=== PATIENT | male | born 1945 | race Caucasian/White ===

== ENCOUNTER 2016-09-16 19:25 | Inpatient (IN) ==
[2016-09-16] MEDS ORDERED: 0.9 % Sodium Chloride 1,000 ML IVC ONE (20:02)
[2016-09-16] MEDS ORDERED: Ipratropium/Albuterol Neb 3 ML IH ONE ×2 (20:02→20:16)
[2016-09-16] MEDS ORDERED: Ipratropium/Albuterol Neb 3 ML ONE (20:16)
[2016-09-16] MEDS ORDERED: methylPREDNISolone 125 MG/2 ML VIAL IV ONE (20:16)
[2016-09-16 20:21] LABS: Basophils % 0.2 %; Hematocrit 33.2 % (37.5-50.1); Hemoglobin 11.4 g/dL (12.9-16.9); Immature Platelets 2.2 % (1.1-6.1); Lymphocytes # 0.1 K/mcL (0.6-4.6); Lymphocytes % 3.4 %; Mean Corpuscular HGB Conc 34.3 g/dL (31.6-35.5); Mean Corpuscular Hemoglobin 33.7 pg (28.0-33.3); Mean Corpuscular Volume 98.2 fL (83.0-100.0); Mean Platelet Volume 9.5 fL (9.4-12.4); Monocytes # 0.2 K/mcL (0.0-1.3); Monocytes % 3.9 %; Platelet Count 180 K/mcL (140-400); Red Blood Count 3.38 M/mcL (4.19-5.50); Red Cell Distribution Width 12.2 % (11.5-14.5); Segmented Neutrophils % 91.5 %
[2016-09-16 20:28] LABS: Neutrophils # 3.8 K/mcL (1.6-8.9)
--- NOTE | 2016-09-16 20:32 | Emergency Department Note ---
Disposition Clinical Impression: Acute exacerbation of chronic obstructive airways disease Dyspnea Qualifiers: Dyspnea type: unspecified Qualified Code(s): R06.00 - Dyspnea, unspecified BC (bronchogenic carcinoma) Qualifiers: Laterality: unspecified laterality Qualified Code(s): C34.90 - Malignant neoplasm of unspecified part of unspecified bronchus or lung Disposition: Admitted As Inpatient Referrals: Unassigned,Provider [Non-Partnered Physician] - Forms: ED Satisfaction Letter SOB HPI - General Chief Complaint: ED Nausea/Vomiting/Diarrhea Stated Complaint: chest congestion, n/v Time Seen by Provider: 09/16/16 19:55 Source: patient, family Limitations: no limitations Nursing Notes Reviewed: Yes Vital Signs Reviewed: Yes - History of Present Illness helps with the history due the patient on continuous nebulizer he has been more short of breath and wheezing for the last 2-3 days. Currently undergoing treatment for bronchogenic carcinoma as a known history of COPD. His had a productive cough has been afebrile he had a breathing treatment about 2 hours prior to arrival and still dyspneic at rest is also on chronic home oxygen nasal cannula Pt Subjective Complaint: shortness of breath Onset (ago): day(s) (3) Severity: moderate Consistency/Duration: constant, gradually worsening Improves with: oxygen, rest, bronchodilators Worsens with: exertion - Related Data Home Medications Medication Instructions Recorded Confirmed Albuterol Sulfate [Albuterol 2 puff IH Q4HR PRN 08/10/16 08/19/16 Inhaler] Amlodipine Besylate 2.5 mg PO DAILY 08/10/16 08/19/16 Azelastine 0.1% Nasal [place] 1 spr NS BID PRN 08/10/16 08/19/16 [Astelin] Fluticasone/Salmeterol [Advair Hfa 2 puff IH BID 08/10/16 08/19/16 230-21 Mcg Inhaler] Ipratropium Neb [Atrovent Neb] 0.5 mg IH Q6HR PRN 08/10/16 08/19/16 Lovastatin [Mevacor] 20 mg PO HS 08/10/16 08/19/16 RisperiDONE [Risperidone] 0.5 mg PO TID 08/10/16 08/19/16 Sotalol [Betapace] 80 mg PO Q12HR 08/10/16 08/19/16 Previous Rx's Medication Instructions Recorded OxyCODONE Immed Rel [Roxicodone 5 5 mg PO BID PRN #60 tablet 08/12/16 MG] Guaifenesin/Codeine Phosphate 10 ml PO TID PRN #240 liquid 08/24/16 [Guaifenesin-Codeine Syrup] Magic Mouthwash [Magic Mouthwash 10 ml PO QID PRN #240 ml 08/30/16 BLM] Ondansetron ODT [Zofran ODT] 4 mg SL Q8HR PRN #30 tab.rapdis 08/30/16 Prochlorperazine Maleate 10 mg PO Q8HR PRN #90 tablet 08/30/16 [Compazine] Lidocaine/Prilocaine CREAM [Emla] 5 gm TP ONCE #1 tube 08/31/16 Sulfamethoxazole/Trimeth DS 1 each PO BID #20 tablet 09/06/16 [Bactrim DS] Sennosides/Docusate Sodium 1 each PO BID #60 tablet 09/14/16 [Senna-S Tablet] Allergies Allergy/AdvReac Type Severity Reaction Status Date / Time No Known Allergies Allergy Verified 08/10/16 08:12 All systems ED: reviewed and negative except as stated. Constitutional: Reports: weakness. Denies: fever Cardiovascular: Denies: chest pain Respiratory: Reports: cough, dyspnea, wheezes Past Medical History - Past Medical History Source: patient, old records reviewed, obtained from family, nursing notes reviewed Medical history: Reports: arthritis, atrial fibrillation, cancer, COPD, coronary artery disease, GI bleed, hyperlipidemia, hypertension Surgical history: Reports: cholecystectomy, colectomy, orthopedic, other, pacemaker Psychiatric history: Reports: no psych history - Social History Smoking Status: Former smoker Smokeless Tobacco Status: No Alcohol use: Reports: occasionally Drug use: Reports: none Physical Exam - General Limitations: no limitations General appearance: alert, other (Very hard or hearing mild respiratory distress ) - Head Head exam: atraumatic, normocephalic, normal inspection - Eye Eye exam: Present: normal appearance, PERRL, EOMI - Expanded Eye Exam Pupils: Left: reactive - ENT ENT exam: normal exam, normal oropharynx, mucous membranes moist - Expanded ENT Exam External ear exam: Present: normal external inspection Mouth exam: Present: normal external inspection Teeth exam: Present: normal inspection Throat exam: Present: normal inspection - Neck Neck exam: Present: normal inspection, full ROM, trachea midline - Chest Chest inspection: Present: normal inspection, symmetric chest wall rise - Respiratory Respiratory exam: Present: respiratory distress (Mild tachypneic), wheezes (Get her wheezes and rhonchi), accessory muscle use, prolonged expiratory phase - Cardiovascular Cardiovascular exam: Present: regular rate, normal rhythm, normal heart sounds - Abdominal Exam Abdominal exam: Present: soft, Non-Tender. Absent: tenderness, distention, guarding, rebound, rigidity - Extremities Exam Extremities exam: Present: normal inspection, full ROM. Absent: tenderness, pedal edema - Expanded Upper Extremity Exam Shoulder exam: Present: normal inspection, full ROM Arm exam: Present: normal inspection, full ROM Elbow exam: Present: normal inspection, full ROM Forearm/Wrist exam: Present: normal inspection, full ROM Hand exam: Present: normal inspection, full ROM Vascular exam: Normal: capillary refill, radial pulse - Expanded Lower Extremity Exam Hip/Pelvis exam: Present: normal inspection, full ROM Upper leg exam: Present: normal inspection, full ROM Knee exam: Present: normal inspection, full ROM Lower leg exam: Present: normal inspection, full ROM Ankle exam: Present: normal inspection, full ROM Foot/toe exam: Present: normal inspection, full ROM Neurovascular/Tendon exam: Absent: motor deficit, sensory deficit, tendon deficit - Back Exam Back exam: Present: normal inspection, full ROM. Absent: tenderness - Neurological Exam Neurological exam: Present: alert, oriented X3 - Expanded Neurological Exam Patient oriented to: Present: person, place, time Coma Scale Eye Opening: Spontaneous Coma Scale Motor Response: Obeys Commands Coma Scale Verbal Response: Oriented Coma Scale Total: 15 - Psychiatric Psychiatric exam: Present: normal affect, normal mood - Skin Skin exam: Present: warm, dry, intact, normal color Course Vital Signs Temperature 98.4 F 09/16/16 19:29 Pulse Rate 100 09/16/16 19:29 Respiratory Rate 26 09/16/16 19:29 Blood Pressure 112/67 09/16/16 19:29 O2 Sat by Pulse Oximetry 91 L 09/16/16 19:29 Temperature 98.4 F 09/16/16 19:29 Pulse Rate 100 09/16/16 19:29 Respiratory Rate 28 09/16/16 20:13 Blood Pressure 112/67 09/16/16 19:29 O2 Sat by Pulse Oximetry 96 09/16/16 20:13 Oxygen Delivery Oxygen Delivery Room Air Shortness of Breath/Dyspnea - Differential Diagnosis Likely: acute exacerbation of chronic obstructive airways disease, congestive heart failure, pneumonia, asthma with exacerbation, pulmonary embolism, pneumothorax, arrhythmia - Medical Records Medical records reviewed: Yes I reviewed the patient's medical records. - Lab Data Lab results reviewed: Yes I reviewed the patient's lab results. Result diagrams: 09/16/16 20:11 09/16/16 20:11 Lab Results 09/16/16 09/16/16 09/16/16 Range/Units 20:11 20:11 20:11 WBC 4.1 L (4.3-11.1) K/mcL RBC 3.38 L (4.19-5.50) M/mcL Hgb 11.4 L (12.9-16.9) g/dL Hct 33.2 L (37.5-50.1) % MCV 98.2 (83.0-100.0) fL MCH 33.7 H (28.0-33.3) pg MCHC 34.3 (31.6-35.5) g/dL RDW 12.2 (11.5-14.5) % Plt Count 180 (140-400) K/mcL MPV 9.5 (9.4-12.4) fL Immature Gran % 1.0 (0-4) % Seg Neutrophils % 91.5 % Lymphocytes % 3.4 % Monocytes % 3.9 % Eosinophils % 0.0 % Basophils % 0.2 % Neutrophils # 3.8 (1.6-8.9) K/mcL Lymphocytes # 0.1 L (0.6-4.6) K/mcL Monocytes # 0.2 (0.0-1.3) K/mcL Eosinophils # 0.0 (0.0-0.6) K/mcL Basophils # 0.0 (0.0-0.2) K/mcL Immature Plt Fraction 2.2 (1.1-6.1) % Sodium 135 L (136-145) mEq/L Potassium 3.7 (3.5-4.5) mEq/L Chloride 104 (98-109) mEq/L Carbon Dioxide 20 (19-29) mEq/L BUN 14 (8-26) mg/dL Creatinine 0.72 (0.72-1.25) mg/dL Est GFR ( Amer) > 60 (> 60) Est GFR (Non-Af Amer) > 60 (> 60) BUN/Creatinine Ratio 19 (6-26) Glucose 91 (70-99) mg/dL Calculated Osmolality 280 (280-300) Lactic Acid (0.5-2.2) mmol/L Calcium 8.5 L (8.6-10.8) mg/dL Total Bilirubin 0.5 (0.2-1.2) mg/dL Direct Bilirubin 0.2 (0.0-0.5) mg/dL Indirect Bilirubin 0.3 (0.0-1.2) mg/dL AST 20 (5-34) Units/L ALT < 6 (0-55) Units/L Alkaline Phosphatase 98 (38-126) Units/L Troponin I 0.01 (0-0.03) ng/mL B-Natriuretic Peptide (0-100) pg/mL Serum Total Protein 5.7 L (6.0-8.3) g/dL Albumin 2.6 L (3.5-5.0) g/dL Globulin 3.1 (2.4-3.5) g/dL Albumin/Globulin Ratio 0.8 L (1.1-2.2) Amylase 24 L (25-125) Units/L Lipase 7 L (8-78) Units/L 09/16/16 09/16/16 Range/Units 20:11 20:11 WBC (4.3-11.1) K/mcL RBC (4.19-5.50) M/mcL Hgb (12.9-16.9) g/dL Hct (37.5-50.1) % MCV (83.0-100.0) fL MCH (28.0-33.3) pg MCHC (31.6-35.5) g/dL RDW (11.5-14.5) % Plt Count (140-400) K/mcL MPV (9.4-12.4) fL Immature Gran % (0-4) % Seg Neutrophils % % Lymphocytes % % Monocytes % % Eosinophils % % Basophils % % Neutrophils # (1.6-8.9) K/mcL Lymphocytes # (0.6-4.6) K/mcL Monocytes # (0.0-1.3) K/mcL Eosinophils # (0.0-0.6) K/mcL Basophils # (0.0-0.2) K/mcL Immature Plt Fraction (1.1-6.1) % Sodium (136-145) mEq/L Potassium (3.5-4.5) mEq/L Chloride (98-109) mEq/L Carbon Dioxide (19-29) mEq/L BUN (8-26) mg/dL Creatinine (0.72-1.25) mg/dL Est GFR ( Amer) (> 60) Est GFR (Non-Af Amer) (> 60) BUN/Creatinine Ratio (6-26) Glucose (70-99) mg/dL Calculated Osmolality (280-300) Lactic Acid 0.9 (0.5-2.2) mmol/L Calcium (8.6-10.8) mg/dL Total Bilirubin (0.2-1.2) mg/dL Direct Bilirubin (0.0-0.5) mg/dL Indirect Bilirubin (0.0-1.2) mg/dL AST (5-34) Units/L ALT (0-55) Units/L Alkaline Phosphatase (38-126) Units/L Troponin I (0-0.03) ng/mL B-Natriuretic Peptide 238 H (0-100) pg/mL Serum Total Protein (6.0-8.3) g/dL Albumin (3.5-5.0) g/dL Globulin (2.4-3.5) g/dL Albumin/Globulin Ratio (1.1-2.2) Amylase (25-125) Units/L Lipase (8-78) Units/L - Radiology Data Radiology results reviewed: Yes I reviewed the patient's radiology results.
[2016-09-16 20:36] LABS: Albumin 2.6 g/dL (3.5-5.0); Albumin/Globulin Ratio 0.8 (1.1-2.2); Alkaline Phosphatase 98 Units/L (38-126); Amylase 24 Units/L (25-125); Aspartate Amino Transferase 20 Units/L (5-34); BUN/Creatinine Ratio 19 (6-26); Bilirubin,Direct 0.2 mg/dL (0.0-0.5); Bilirubin,Indirect 0.3 mg/dL (0.0-1.2); Bilirubin,Total 0.5 mg/dL (0.2-1.2); Blood Urea Nitrogen 14 mg/dL (8-26); Calcium 8.5 mg/dL (8.6-10.8); Carbon Dioxide 20 mEq/L (19-29); Chloride 104 mEq/L (98-109); Globulin 3.1 g/dL (2.4-3.5); Glucose 91 mg/dL (70-99); Lipase 7 Units/L (8-78); Osmolality,Calculated 280 (280-300); Potassium 3.7 mEq/L (3.5-4.5); Sodium 135 mEq/L (136-145); Total Protein 5.7 g/dL (6.0-8.3); eGFR For African Americans > 60 (> 60); eGFR For Non-African Americans > 60 (> 60)
[2016-09-16 20:37] LABS: Alanine Aminotransferase < 6 Units/L (0-55)
[2016-09-16] MEDS ORDERED: Levofloxacin 750 MG/150 ML 750 MG/150 ML BAG IVPB ONE (21:32)
--- NOTE | 2016-09-16 23:33 | Internal Med History&Physical ---
Date of Encounter: 09/17/16 Time of Encounter: 23:29 Assessment and Plan (1) Acute respiratory failure Current visit: Yes Status: Acute Differential includes COPD exacerbation vs. infection vs. thromboembolism Will rule out PE with CTA but start on therapeutic Lovenox for now as he does have AFib not currently on anticoagulation He did have Wells score of 2.5 (HR and Malignancy) Continue with home oxygen and breathing treatments Qualifiers: Qualified Code(s): J96.00 - Acute respiratory failure, unspecified whether with hypoxia or hypercapnia (2) Acute exacerbation of chronic obstructive airways disease Current visit: Yes Status: Acute Will continue breathing treatments, supplemental oxygen and cough medications He received one dose of steroids in the ED which helped him significantly with wheezing, will continue IV steroids 60 q6hr Continue with Levaquin 500 mg IV daily (3) Paroxysmal a-fib Current visit: Yes Status: Chronic Patient is currently in NSR but does not have any chronic anticoagulation as he has elected not to receive it during an outpatient with his supervisor forming department CHADVASC = 2 (age, HTN), will start therapeutic Lovenox for now as there is moderate suspicion for PE as well Continue with home Sotalol for rate control (4) Hypertension Current visit: Yes Status: Chronic BP stable since admission Will continue home Norvasc Monitor vitals while on telemetry Qualifiers: Qualified Code(s): I10 - Essential (primary) hypertension (5) BC (bronchogenic carcinoma) Current visit: Yes Status: Chronic He is being treated as outpatient by Dr. Singer No urgent need for consult at this time CTA ordered to rule out PE may also demonstrate any new mass effects Qualifiers: Laterality: right Qualified Code(s): C34.31 - Malignant neoplasm of lower lobe, right bronchus or lung (6) DVT prophylaxis Current visit: Yes Status: Acute Therapeutic Lovenox as above Internal Medicine - H&P: HPI Chief complaint: Shortness of breath Admitted From: Home Plans for Post Hospital Care: Home History of present illness: Mr. Aragon is a 71 year old male who presents to the emergency department with progressive shortness of breath over the past couple days. Patient is very hard of hearing and family is at bedside and able to assist with history. Patient has history of bronchogenic carcinoma and currently being treated at the cancer center over the last 3 weeks with chemotherapy (Carbo/Taxol) and radiation on . He last had his treatment on Monday and on that night he became more short of breath and had wheezing. He also describes a chest heaviness, nonproductive cough, but denies any hemoptysis or blood in urine/ stool. He does have inhalers at home for his COPD and also has 2 L of nighttime oxygen. Patient denies any fever, chills, nausea, vomiting, but he does state that he has recent diarrhea over the past several days. His appetite has also been poor the last couple days. He was noted to have lip swelling that started 3 weeks ago and was treated as an outpatient with antibiotics, which has decreased the swelling. Since arriving at the emergency department, he states he is feeling better after being on breathing treatments, steroids and oxygen. Past Med Surg Social Fam HX - Past Medical History Medical history: arthritis, atrial fibrillation, cancer, COPD, coronary artery disease, GI bleed, hyperlipidemia, hypertension Psychiatric history: no psych history - Past Surgical History Surgical History: cholecystectomy, colectomy, orthopedic, other, pacemaker - Social History Smoking Status: Former smoker Smokeless Tobacco Status: No Alcohol use: occasionally Drug use: none Internal Medicine - H&P: Meds Albuterol Sulfate [Albuterol Inhaler] 2 puff IH Q4HR PRN 08/10/16 [History] Amlodipine Besylate 2.5 mg PO DAILY 08/10/16 [History] Azelastine 0.1% Nasal [place] [Astelin] 1 spr NS BID PRN 08/10/16 [History] Fluticasone/Salmeterol [Advair Hfa 230-21 Mcg Inhaler] 2 puff IH BID 08/10/16 [ History] Ipratropium Neb [Atrovent Neb] 0.5 mg IH Q6HR PRN 08/10/16 [History] Lovastatin [Mevacor] 20 mg PO HS 08/10/16 [History] RisperiDONE [Risperidone] 0.5 mg PO TID 08/10/16 [History] Sotalol [Betapace] 80 mg PO Q12HR 08/10/16 [History] OxyCODONE Immed Rel [Roxicodone 5 MG] 5 mg PO BID PRN #60 tablet 08/12/16 [Rx] Guaifenesin/Codeine Phosphate [Guaifenesin-Codeine Syrup] 10 ml PO TID PRN #240 liquid 08/24/16 [Rx] Magic Mouthwash [Magic Mouthwash BLM] 10 ml PO QID PRN #240 ml 08/30/16 [Rx] Ondansetron ODT [Zofran ODT] 4 mg SL Q8HR PRN #30 tab.rapdis 08/30/16 [Rx] Prochlorperazine Maleate [Compazine] 10 mg PO Q8HR PRN #90 tablet 08/30/16 [Rx] Lidocaine/Prilocaine CREAM [Emla] 5 gm TP ONCE #1 tube 08/31/16 [Rx] Sennosides/Docusate Sodium [Senna-S Tablet] 1 each PO BID #60 tablet 09/14/16 [ Rx] Allergies No Known Allergies Allergy (Verified 08/10/16 08:12) All Systems PM: A 10-system review of systems was performed and is negative for pertinent findings except as documented above in the HPI. - Constitutional Constitutional: no chills, no fever(s), no night sweats - EENT Eyes: no change in vision, no discharge, no pain, no photophobia Ears: decreased hearing, no ear discharge, no ear pain, no tinnitus Nose, mouth and throat: no dysphagia, no nasal discharge, no neck pain, no sore throat - Cardiovascular Cardiovascular ROS IM: chest pain (heaviness), dyspnea, dyspnea on exertion, no diaphoresis, no lightheadedness, no palpitations, no syncope - Respiratory Respiratory: wheezing, no cough, no dyspnea, no excessive phlegm production - Gastrointestinal Gastrointestinal: diarrhea, no abdominal pain, no hematemesis, no hematochezia, no melena, no nausea, no vomiting - Musculoskeletal Musculoskeletal ROS IM: no numbness, no tingling - Integumentary Integumentary IM: no rash, no unusual bruising - Neurological Neurological ROS: no confusion, no convulsions, no focal weakness, no numbness, no tingling, no tremor(s) - Hematologic/Lymphatic Hematologic/Lymphatic: no easy bruising - Constitutional Vitals: Temp Pulse Resp BP Pulse Ox 98.4 F 100 28 112/67 96 09/16/16 19:29 09/16/16 19:29 09/16/16 20:13 09/16/16 19:29 09/16/16 20:13 General appearance: Present: cooperative, mild distress (mild respiratory), pleasant, answers questions appropriately (but hard of hearing) - Head Head exam: Present: atraumatic, normocephalic - Eye Eye exam: Present: PERRL, conjuntiva pink, sclera anicteric - Neck Neck exam general surgery: Present: supple, trachea midline. Absent: lymphadenopathy - Respiratory Respiratory exam: Present: wheezes (R>L). Absent: accessory muscle use, rales, rhonchi - Cardiovascular Cardiovascular exam: Present: RRR, +S1, +S2. Absent: diastolic murmur, gallop, rubs, systolic murmur - GI/Abdominal GI/Abdominal exam: Present: normal bowel sounds, soft, no peritoneal signs. Absent: distended, tenderness - Extremities Exam Extremities exam: Present: warm, radial pulses palpable and symetrical. Absent : calf tenderness, cyanotic, pedal edema - Neurological Exam Neurological exam: Present: alert, no focal deficits. Absent: facial droop, speech deficit - Skin Skin exam: Present: dry, intact Internal Med - H&P Results - Labs CBC & Chem 7: 09/16/16 20:11 09/16/16 20:11
[2016-09-16] MEDS ORDERED: Naloxone 0.4 MG/ML INJ IVP PRN (23:51)
[2016-09-16] MEDS ORDERED: Ondansetron 4 MG/2 ML VIAL IVP PRN (23:51)
[2016-09-16] MEDS ORDERED: Acetaminophen 325 MG TABLET PO PRN (23:51)
[2016-09-17] MEDS ORDERED: Albuterol 2.5 MG/3 ML NEBULIZER IH PRN (00:14)
[2016-09-17] MEDS: 0.9 % Sodium Chloride 1,000 ML IVC SCH ×2 (00:30→10:24)
[2016-09-17 02:30] LABS: Hematocrit 29.4 % (37.5-50.1); Lymphocytes # 0.1 K/mcL (0.6-4.6); Mean Corpuscular Hemoglobin 33.7 pg (28.0-33.3); Mean Platelet Volume 9.5 fL (9.4-12.4); Platelet Count 132 K/mcL (140-400); Red Blood Count 2.97 M/mcL (4.19-5.50); Red Cell Distribution Width 12.1 % (11.5-14.5)
[2016-09-17 02:44] LABS: BUN/Creatinine Ratio 20 (6-26); Blood Urea Nitrogen 14 mg/dL (8-26); Calcium 8.4 mg/dL (8.6-10.8); Carbon Dioxide 20 mEq/L (19-29); Chloride 103 mEq/L (98-109); Glucose 117 mg/dL (70-99); Osmolality,Calculated 278 (280-300); Potassium 4.3 mEq/L (3.5-4.5); Sodium 133 mEq/L (136-145); eGFR For African Americans > 60 (> 60); eGFR For Non-African Americans > 60 (> 60)
[2016-09-17 03:39] LABS: Hypersegmented Neutrophils Present (Not Present); Monocytes # 0.1 K/mcL (0.0-1.3); Neutrophils # 3.1 K/mcL (1.6-8.9); Polychromasia 1+ (Not Present)
[2016-09-17 03:40] LABS: Platelet Estimate Decreased (Normal)
[2016-09-17 03:49] LABS: Anisocytosis 1+ (Not Present)
[2016-09-17] MEDS ORDERED: Ipratropium/Albuterol Neb 3 ML IH SCH (04:00)
[2016-09-17] MEDS: Albuterol 2.5 MG/3 ML NEBULIZER IH SCH ×6 (04:14→23:30)
[2016-09-17] MEDS: Ipratropium/Albuterol Neb 3 ML IH SCH ×5 (04:41→23:30)
[2016-09-17] MEDS: methylPREDNISolone 125 MG/2 ML VIAL IVP SCH ×3 (05:14→17:08)
[2016-09-17] MEDS: *HR* Enoxaparin 80 MG/0.8 ML SYRINGE SQ SCH ×2 (05:17→17:08)
[2016-09-17] MEDS: Budesonide/Formoterol 160/4.5 MDI IH SCH ×2 (07:40→20:25)
[2016-09-17] MEDS: amLODIPine 5 MG TABLET PO SCH (09:36)
[2016-09-17] MEDS: Pantoprazole 40 MG VIAL IVP SCH (10:23)
--- NOTE | 2016-09-17 16:33 | Internal Med Progress Note ---
<RamanaPradeep carlton - Last Filed: 09/17/16 16:27> Date of Encounter: 09/17/16 Time of Encounter: 11:00 - Assessment and plan (1) Acute respiratory failure Current Visit: Yes Status: Acute Assessment and plan: Etiology likely multifactorial in setting of COPD, immunocompromised state, recent chemo/radiation. Continue Levaquin Day 1 Methylprednisolone 60mg Q6HR scheduled DuoNebs Q4HR will check ABG tomorrow morning. possible sepsis. Patient technically meets SIRS criteria but this is confounded by his chemotherapy, which is probably lowering his white count. blood culturesx2 pending urine culture pending will trend lactate. induced sputum culture. Qualifiers: Respiratory failure complication: unspecified whether with hypoxia or hypercapnia Qualified Code(s): J96.00 - Acute respiratory failure, unspecified whether with hypoxia or hypercapnia; J96.02 - Acute respiratory failure with hypercapnia (2) Acute exacerbation of chronic obstructive airways disease Current Visit: Yes Status: Acute Assessment and plan: plan as above. (3) BC (bronchogenic carcinoma) Current Visit: Yes Status: Chronic Assessment and plan: Patient was recently diagnosed with bronchogenic carcinoma last month. Patient sees Dr. Singer outpatient. He is receiving chemo/radiation. Patient has a smoking history of 2 years, <1 PPD. CTA revealed right upper lobe lung mass near mediastinum, compatible with his known malignancy. There was a satellite nodue in the right upper lobe of the lung measuring 3mm. There were normal sized right hilar and mediastinal lymph nodes which demonstrated FDG uptake on previous study, compatible with metastatic disease. Management as per oncology outpatient. Qualifiers: Laterality: right Qualified Code(s): C34.31 - Malignant neoplasm of lower lobe, right bronchus or lung (4) Hypertension Current Visit: Yes Status: Chronic Assessment and plan: BP well controlled. continue home med norvasc, Qualifiers: Hypertension type: essential hypertension Qualified Code(s): I10 - Essential (primary) hypertension (5) Paroxysmal a-fib Current Visit: Yes Status: Chronic Assessment and plan: Patient not on any chronic anticoagulation. He has elected to not receive it outpatient. CHADS/VASC score is 2 CTA negative for PE. Continue therapeutic lovenox. Will discuss continue sotalol home med. (6) DVT prophylaxis Current Visit: Yes Status: Acute Assessment and plan: lovenox. - Subjective Interval history: 71 year old male evaluated at bedside. He reports having a productive cough with yellow sputum production. He denies fever/chills.He denies chest pain or shortness of breath. He denies hemoptysis. He denies nausea, vomiting, diarrhea. Patient has a history of bronchogenic carcinoma. He recently received his first round of radiation/chemo. His oncologist is Dr. Singer. He smoked for two years total, and used to smoke less than 1PPD. He has a hx of COPD and is on 2L home oxygen. - Constitutional Vitals: Temp Pulse Resp BP Pulse Ox 97.8 F 74 18 109/60 94 L 09/17/16 15:00 09/17/16 15:00 09/17/16 15:00 09/17/16 15:00 09/17/16 15:00 General appearance: Present: cooperative, mild distress (mild respiratory), A&O X 3, pleasant, answers questions appropriately (but hard of hearing) Exam: patient has continuous cough. - Head Head exam: Present: atraumatic, normocephalic - Eye Eye exam: Absent: scleral icterus - Neck Neck exam general surgery: Present: supple, trachea midline - Respiratory Respiratory exam: Present: rhonchi, wheezes (inspiratory and expiratory wheezes noted. ) - Cardiovascular Additional comments: paced rhythm. Pacemaker on left side of chest. Chemo port present on right side of chest. - GI/Abdominal GI/Abdominal exam: Present: normal bowel sounds, soft - Extremities Exam Extremities exam: Absent: cyanotic, pedal edema Additional comments: scar on medial side of left calf. - Neurological Exam Neurological exam: Present: alert, oriented X3, no focal deficits - Psychiatric Psychiatric exam: Present: normal affect, normal mood Internal Medicine: Result - Labs CBC & Chem 7: 09/17/16 02:23 09/17/16 02:23 Labs: Short CBC 09/17/16 Range/Units 02:23 WBC 3.2 L (4.3-11.1) K/mcL Hgb 10.0 L (12.9-16.9) g/dL Hct 29.4 L (37.5-50.1) % Plt Count 132 L (140-400) K/mcL Neutrophils # 3.1 (1.6-8.9) K/mcL BMP 09/17/16 02:23 Sodium 133 L Potassium 4.3 Chloride 103 Carbon Dioxide 20 BUN 14 Creatinine 0.70 L Glucose 117 H Calcium 8.4 L Cardiac Enzymes 09/17/16 09/17/16 Range/Units 02:23 08:35 Troponin I 0.01 0.01 (0-0.03) ng/mL - Impressions Impressions Chest CTA 09/17/16 08:30 IMPRESSION: 1. No evidence of a pulmonary embolism. 2. Right upper lobe lung mass, abutting the mediastinum, compatible with a known primary malignancy. There is a satellite nodule in the right upper lobe of the lung measuring 3 mm (series 4, image 26). This did not have appreciable FDG uptake on the prior exam. 3. Benign right adrenal adenoma. 4. There are normal sized right hilar and mediastinal lymph nodes which did demonstrate FDG uptake on the previous study, and are compatible with metastatic disease. 5. Centrilobular and paraseptal emphysema. D/ / 09/17/2016 09:33:39 Zain Contreras MD / mercedes Interpreting Provider: Zain Contreras MD Consult Discharge Plan - Plan Referrals: Elsa Godadrd, [employer] [Primary Care Provider] - <Jonathan Davis A - Last Filed: 09/17/16 19:09> Date of Encounter: 09/17/16 - Assessment and plan (1) Acute respiratory failure Current Visit: Yes Status: Acute Qualifiers: Respiratory failure complication: hypoxia and hypercapnia Qualified Code(s) : J96.01 - Acute respiratory failure with hypoxia; J96.02 - Acute respiratory failure with hypercapnia (2) Acute exacerbation of chronic obstructive airways disease Current Visit: Yes Status: Acute (3) Cancer of upper lobe of right lung Current Visit: No Status: Acute (4) Hypertension Current Visit: Yes Status: Chronic Qualifiers: Hypertension type: essential hypertension Qualified Code(s): I10 - Essential (primary) hypertension (5) Paroxysmal a-fib Current Visit: Yes Status: Chronic - Constitutional Vitals: Temp Pulse Resp BP Pulse Ox 97.8 F 74 18 109/60 94 L 09/17/16 15:00 09/17/16 15:00 09/17/16 15:36 09/17/16 15:36 09/17/16 15:36 Internal Medicine: Result - Labs CBC & Chem 7: 09/17/16 02:23 09/17/16 02:23 Labs: Short CBC 09/17/16 Range/Units 02:23 WBC 3.2 L (4.3-11.1) K/mcL Hgb 10.0 L (12.9-16.9) g/dL Hct 29.4 L (37.5-50.1) % Plt Count 132 L (140-400) K/mcL Neutrophils # 3.1 (1.6-8.9) K/mcL BMP 09/17/16 02:23 Sodium 133 L Potassium 4.3 Chloride 103 Carbon Dioxide 20 BUN 14 Creatinine 0.70 L Glucose 117 H Calcium 8.4 L Cardiac Enzymes 09/17/16 09/17/16 Range/Units 02:23 08:35 Troponin I 0.01 0.01 (0-0.03) ng/mL - Impressions Impressions Chest CTA 09/17/16 08:30 IMPRESSION: 1. No evidence of a pulmonary embolism. 2. Right upper lobe lung mass, abutting the mediastinum, compatible with a known primary malignancy. There is a satellite nodule in the right upper lobe of the lung measuring 3 mm (series 4, image 26). This did not have appreciable FDG uptake on the prior exam. 3. Benign right adrenal adenoma. 4. There are normal sized right hilar and mediastinal lymph nodes which did demonstrate FDG uptake on the previous study, and are compatible with metastatic disease. 5. Centrilobular and paraseptal emphysema. D/ / 09/17/2016 09:33:39 Zain Contreras MD / mercedes Interpreting Provider: Zain Contreras MD - Attending Attestation I examined this patient and my medical decision-making was reviewed with the Resident Physician on 09/17/16. I agree with the documented findings, disposition and treatment plan as described except to the extent set forth below. Mr. Aragon is currently admitted for acute respiratory failure and acute exacerbation of COPD. He remains high risk due to potential for worsening respiratory failure. Mr. Aragon is doing fair at this time. He is in need of a respiratory treatment. Denies CP or abd pain. No fever or chills. Has been able to stay off bipap at this time. Exam Alert. Mod distress Heart reg Lungs with diffuse end exp wheeze Abd soft No edema I/P 1. Acute hypercarbic and hypoxic resp failure 2. Acute exac COPD Further diagnoses and plan as above.
[2016-09-17] MEDS: *HR* OxyCODONE Immed Rel 5 MG TABLET PO PRN (17:40)
[2016-09-17] MEDS: GuaiFENesin/Codeine Oral Soln 5 ML UDC PO PRN (20:49)
[2016-09-18] MEDS: methylPREDNISolone 125 MG/2 ML VIAL IVP SCH ×4 (00:05→18:25)
[2016-09-18] MEDS: Levofloxacin 500 MG/100 ML 500 MG/100 ML BAG IVPB SCH (00:05)
[2016-09-18] MEDS: GuaiFENesin/Codeine Oral Soln 5 ML UDC PO PRN ×3 (02:18→18:25)
[2016-09-18] MEDS: Ipratropium/Albuterol Neb 3 ML IH SCH ×6 (04:26→23:09)
[2016-09-18] MEDS: Albuterol 2.5 MG/3 ML NEBULIZER IH SCH ×5 (04:27→20:14)
[2016-09-18 04:33] LABS: ABG Base Excess 3.1 mEq/L (-2.0 to 3.0); ABG HCO3 27.9 mEQ/L (21-27); ABG Oxygen Saturation 96 % (95-98); ABG PCO2 43 mmHg (35-45); ABG PH 7.42 pH Units (7.32-7.45); ABG PO2 80 mmHg (85-104); ABG TCO2 29.2 mEq/L (20-26)
[2016-09-18 04:35] LABS: Blood Gas FiO2 28 %
[2016-09-18 05:01] LABS: BUN/Creatinine Ratio 26 (6-26); Blood Urea Nitrogen 15 mg/dL (8-26); Calcium 8.6 mg/dL (8.6-10.8); Carbon Dioxide 24 mEq/L (19-29); Chloride 103 mEq/L (98-109); Glucose 133 mg/dL (70-99); Osmolality,Calculated 283 (280-300); Potassium 4.2 mEq/L (3.5-4.5); Sodium 135 mEq/L (136-145); eGFR For African Americans > 60 (> 60); eGFR For Non-African Americans > 60 (> 60)
[2016-09-18] MEDS: *HR* Enoxaparin 80 MG/0.8 ML SYRINGE SQ SCH ×2 (05:45→18:25)
[2016-09-18] MEDS: Budesonide/Formoterol 160/4.5 MDI IH SCH ×2 (08:16→20:12)
[2016-09-18] MEDS: Pantoprazole 40 MG VIAL IVP SCH (08:39)
[2016-09-18] MEDS: amLODIPine 5 MG TABLET PO SCH (08:39)
[2016-09-18] MEDS: *HR* OxyCODONE Immed Rel 5 MG TABLET PO PRN ×2 (09:33→18:25)
[2016-09-18] MEDS: Magic Mouthwash 10 ML UD Cup PO SCH ×2 (11:26→18:25)
[2016-09-18] MEDS ORDERED: Ketorolac 15 MG/ML VIAL IVP PRN (11:49)
[2016-09-18] MEDS: Nystatin SUSP 5 ML UD.LIQ PO SCH ×3 (12:41→20:25)
--- NOTE | 2016-09-18 13:57 | Internal Med Progress Note ---
<Pradeep Emery - Last Filed: 09/18/16 14:28> Date of Encounter: 09/18/16 Time of Encounter: 12:00 - Assessment and plan (1) Acute respiratory failure Current Visit: Yes Status: Acute Assessment and plan: Etiology likely multifactorial in setting of COPD, immunocompromised state, recent chemo/radiation. Continue Levaquin Day 2 Methylprednisolone 60mg Q6HR scheduled DuoNebs Q4HR ABG reviewed: within normal limits. possible sepsis. Patient technically meets SIRS criteria but this is confounded by his chemotherapy, which is probably lowering his white count. blood cultures showed no growth urine culture pending lactate normal. induced sputum culture pending. Qualifiers: Respiratory failure complication: hypoxia and hypercapnia Qualified Code(s) : J96.01 - Acute respiratory failure with hypoxia; J96.02 - Acute respiratory failure with hypercapnia (2) Acute exacerbation of chronic obstructive airways disease Current Visit: Yes Status: Acute Assessment and plan: plan as above. (3) BC (bronchogenic carcinoma) Current Visit: Yes Status: Chronic Assessment and plan: Patient was recently diagnosed with bronchogenic carcinoma last month. Patient sees Dr. Singer outpatient. He is receiving chemo/radiation. Patient has a smoking history of 2 years, <1 PPD. CTA revealed right upper lobe lung mass near mediastinum, compatible with his known malignancy. There was a satellite nodue in the right upper lobe of the lung measuring 3mm. There were normal sized right hilar and mediastinal lymph nodes which demonstrated FDG uptake on previous study, compatible with metastatic disease. Management as per oncology outpatient. Qualifiers: Laterality: right Qualified Code(s): C34.31 - Malignant neoplasm of lower lobe, right bronchus or lung (4) Hypertension Current Visit: Yes Status: Chronic Assessment and plan: BP well controlled. continue home med norvasc, Qualifiers: Hypertension type: essential hypertension Qualified Code(s): I10 - Essential (primary) hypertension (5) Paroxysmal a-fib Current Visit: Yes Status: Chronic Assessment and plan: Patient not on any chronic anticoagulation. He has elected to not receive it outpatient. CHADS/VASC score is 2 CTA negative for PE. Continue therapeutic lovenox while in the hospital setting. continue sotalol home med. (6) DVT prophylaxis Current Visit: Yes Status: Acute Assessment and plan: lovenox. - Subjective Interval history: 71 year old male evaluated at bedside. He denies nausea, vomiting, fever, chills. He has mild intermittent shortness of breath. - Constitutional Vitals: Temp Pulse Resp BP Pulse Ox 98.5 F 59 20 101/62 97 09/18/16 11:31 09/18/16 11:31 09/18/16 11:31 09/18/16 11:31 09/18/16 09:23 General appearance: Present: cooperative, mild distress (mild respiratory), A&O X 3, pleasant, answers questions appropriately (but hard of hearing) - Head Head exam: Present: atraumatic, normocephalic - Neck Neck exam general surgery: Present: supple, trachea midline - Respiratory Respiratory exam: Present: rales, rhonchi, wheezes - Cardiovascular Cardiovascular exam: Present: RRR Additional comments: pacemaker on left side of chest, chemo port on right side of chest. - GI/Abdominal GI/Abdominal exam: Present: soft, tenderness (mild tenderness to palpation. ). Absent: distended - Extremities Exam Extremities exam: Absent: cyanotic, pedal edema - Neurological Exam Neurological exam: Present: alert, oriented X3, no focal deficits - Psychiatric Psychiatric exam: Present: anxious Internal Medicine: Result - Labs CBC & Chem 7: 09/17/16 02:23 09/18/16 04:40 Labs: BMP 09/18/16 04:40 Sodium 135 L Potassium 4.2 Chloride 103 Carbon Dioxide 24 BUN 15 Creatinine 0.57 L Glucose 133 H Calcium 8.6 - ABG Interpretation ABG results: ABG ABG pH 7.42 pH Units (7.32-7.45) 09/18/16 04:21 ABG pCO2 43 mmHg (35-45) 09/18/16 04:21 ABG pO2 80 mmHg (85-104) L 09/18/16 04:21 ABG O2 Saturation 96 % (95-98) 09/18/16 04:21 Consult Discharge Plan - Plan Referrals: Elsa Goddard CNP [Primary Care Provider] - <Jonathan Davis - Last Filed: 09/18/16 18:50> Date of Encounter: 09/18/16 - Assessment and plan (1) Acute respiratory failure Current Visit: Yes Status: Acute Qualifiers: Respiratory failure complication: hypoxia and hypercapnia Qualified Code(s) : J96.01 - Acute respiratory failure with hypoxia; J96.02 - Acute respiratory failure with hypercapnia (2) Acute exacerbation of chronic obstructive airways disease Current Visit: Yes Status: Acute (3) Cancer of upper lobe of right lung Current Visit: No Status: Acute (4) Hypertension Current Visit: Yes Status: Chronic Qualifiers: Hypertension type: essential hypertension Qualified Code(s): I10 - Essential (primary) hypertension (5) Paroxysmal a-fib Current Visit: Yes Status: Chronic - Constitutional Vitals: Temp Pulse Resp BP Pulse Ox 98.1 F 66 16 103/57 94 L 09/18/16 15:00 09/18/16 15:00 09/18/16 16:28 09/18/16 15:00 09/18/16 16:28 Internal Medicine: Result - Labs CBC & Chem 7: 09/17/16 02:23 09/18/16 04:40 Labs: BMP 09/18/16 04:40 Sodium 135 L Potassium 4.2 Chloride 103 Carbon Dioxide 24 BUN 15 Creatinine 0.57 L Glucose 133 H Calcium 8.6 - ABG Interpretation ABG results: ABG ABG pH 7.42 pH Units (7.32-7.45) 09/18/16 04:21 ABG pCO2 43 mmHg (35-45) 09/18/16 04:21 ABG pO2 80 mmHg (85-104) L 09/18/16 04:21 ABG O2 Saturation 96 % (95-98) 09/18/16 04:21 - Attending Attestation I examined this patient and my medical decision-making was reviewed with the Resident Physician on 09/18/16. I agree with the documented findings, disposition and treatment plan as described except to the extent set forth below. Mr. Aragon is currently admitted for acute hypercarbic resp failure. He is moderate to high risk due to potential for respiratory compromise. Mr. Aragon is having some sore throat. No other new issues. No abd pain. No fever or chills. Exam Alert. Comfortable Heart reg Lungs diminished Abd soft I/P 1. Hypercarbic resp failure 2. Lung cancer Further diagnoses and plan as above.
[2016-09-19] MEDS: Levofloxacin 500 MG/100 ML 500 MG/100 ML BAG IVPB SCH (00:07)
[2016-09-19] MEDS: methylPREDNISolone 125 MG/2 ML VIAL IVP SCH ×4 (00:07→17:42)
[2016-09-19] MEDS: GuaiFENesin/Codeine Oral Soln 5 ML UDC PO PRN ×3 (00:16→13:32)
[2016-09-19] MEDS: Albuterol 2.5 MG/3 ML NEBULIZER IH SCH ×7 (03:07→23:12)
[2016-09-19] MEDS: Ipratropium/Albuterol Neb 3 ML IH SCH ×6 (03:46→22:50)
[2016-09-19 04:29] LABS: BUN/Creatinine Ratio 25 (6-26); Blood Urea Nitrogen 15 mg/dL (8-26); Calcium 8.4 mg/dL (8.6-10.8); Carbon Dioxide 26 mEq/L (19-29); Chloride 101 mEq/L (98-109); Glucose 118 mg/dL (70-99); Osmolality,Calculated 280 (280-300); Potassium 4.2 mEq/L (3.5-4.5); Sodium 134 mEq/L (136-145); eGFR For African Americans > 60 (> 60); eGFR For Non-African Americans > 60 (> 60)
[2016-09-19] MEDS: *HR* Enoxaparin 80 MG/0.8 ML SYRINGE SQ SCH ×2 (06:55→17:42)
[2016-09-19] MEDS: Budesonide/Formoterol 160/4.5 MDI IH SCH ×2 (07:23→19:50)
[2016-09-19] MEDS: Magic Mouthwash 10 ML UD Cup PO SCH ×3 (10:29→17:42)
[2016-09-19] MEDS: *HR* OxyCODONE Immed Rel 5 MG TABLET PO PRN ×2 (10:34→17:42)
[2016-09-19] MEDS: Pantoprazole 40 MG VIAL IVP SCH (10:34)
[2016-09-19] MEDS: amLODIPine 5 MG TABLET PO SCH (10:34)
[2016-09-19] MEDS: Nystatin SUSP 5 ML UD.LIQ PO SCH ×4 (10:34→20:30)
[2016-09-19] MEDS ORDERED: Ketorolac 15 MG/ML VIAL IVP PRN (14:06)
--- NOTE | 2016-09-19 15:36 | Electrocardiograph Report ---
[place] [id number] Test Date: 2016-09-16 Pat Name: Naveen Aragon Department: 102 Room: [id number] Gender: M [employer]: : 1945 Requested By: Chivo Busby Order Number: [id number] Reading MD: Chandana Peña MD Measurements Intervals [place] Rate: 98 P: 25 TX: 113 QRS: -27 QRSD: 89 T: 65 QT: 321 QTc: 377 Interpretive Statements SINUS RHYTHM WITH SHORT TX INTERVAL BORDERLINE LEFT AXIS DEVIATION Electronically Signed On 09-19-2016 15:34:37 EST by Chandana Peña MD
--- NOTE | 2016-09-19 16:23 | Internal Med Progress Note ---
<Pradeep Emery - Last Filed: 09/19/16 16:02> Date of Encounter: 09/19/16 Time of Encounter: 10:00 - Assessment and plan (1) Acute respiratory failure Current Visit: Yes Status: Acute Assessment and plan: Etiology likely multifactorial in setting of COPD, immunocompromised state, recent chemo/radiation. Continue Levaquin Day 3 Methylprednisolone 60mg Q6HR scheduled DuoNebs Q4HR ABG reviewed: within normal limits. blood cultures showed no growth urine culture pending lactate normal. induced sputum culture pending. patient continues to clinically improve. Qualifiers: Respiratory failure complication: hypoxia and hypercapnia Qualified Code(s) : J96.01 - Acute respiratory failure with hypoxia; J96.02 - Acute respiratory failure with hypercapnia (2) Acute exacerbation of chronic obstructive airways disease Current Visit: Yes Status: Acute Assessment and plan: plan as above. (3) BC (bronchogenic carcinoma) Current Visit: Yes Status: Chronic Assessment and plan: Patient was recently diagnosed with bronchogenic carcinoma last month. Patient sees Dr. Singer outpatient. He is receiving chemo/radiation. Patient has a smoking history of 2 years, <1 PPD. CTA revealed right upper lobe lung mass near mediastinum, compatible with his known malignancy. There was a satellite nodue in the right upper lobe of the lung measuring 3mm. There were normal sized right hilar and mediastinal lymph nodes which demonstrated FDG uptake on previous study, compatible with metastatic disease. Management as per oncology outpatient. Qualifiers: Laterality: right Qualified Code(s): C34.31 - Malignant neoplasm of lower lobe, right bronchus or lung (4) Hypertension Current Visit: Yes Status: Chronic Assessment and plan: BP 90s/60s. holding home med norvasc for now. Qualifiers: Hypertension type: essential hypertension Qualified Code(s): I10 - Essential (primary) hypertension (5) Paroxysmal a-fib Current Visit: Yes Status: Chronic Assessment and plan: Patient not on any chronic anticoagulation. He has elected to not receive it outpatient. CHADS/VASC score is 2 CTA negative for PE. Continue therapeutic lovenox while in the hospital setting. continue sotalol home med. (6) DVT prophylaxis Current Visit: Yes Status: Acute Assessment and plan: lovenox. - Subjective Interval history: 71 year old male evaluated at bedside. He is on 2L oxygen. HE denies nausea, vomiting, diarrhea, fever, chills. He is still coughing. He states he feels mildly improved compared to yesterday. - Constitutional Vitals: Temp Pulse Resp BP Pulse Ox 97.7 F 60 18 92/60 98 09/19/16 07:40 09/19/16 07:40 09/19/16 11:03 09/19/16 11:03 09/19/16 12:26 General appearance: Present: cooperative, mild distress (from coughing. ), A&O X 3, pleasant, answers questions appropriately (but hard of hearing) - Head Head exam: Present: atraumatic, normocephalic - Neck Neck exam general surgery: Present: supple, trachea midline - Respiratory Additional comments: inspiratory and expiratory wheezing present, rhonchi present. - Cardiovascular Cardiovascular exam: Present: RRR, +S1, +S2 - GI/Abdominal GI/Abdominal exam: Present: normal bowel sounds, soft. Absent: guarding - Extremities Exam Extremities exam: Absent: cyanotic, pedal edema Additional comments: scar on left calf. - Neurological Exam Neurological exam: Present: alert, oriented X3, no focal deficits - Psychiatric Psychiatric exam: Present: normal affect, normal mood Internal Medicine: Result - Labs CBC & Chem 7: 09/17/16 02:23 09/19/16 03:55 Labs: BMP 09/19/16 03:55 Sodium 134 L Potassium 4.2 Chloride 101 Carbon Dioxide 26 BUN 15 Creatinine 0.60 L Glucose 118 H Calcium 8.4 L - ABG Interpretation ABG results: ABG ABG pH 7.42 pH Units (7.32-7.45) 09/18/16 04:21 ABG pCO2 43 mmHg (35-45) 09/18/16 04:21 ABG pO2 80 mmHg (85-104) L 09/18/16 04:21 ABG O2 Saturation 96 % (95-98) 09/18/16 04:21 Consult Discharge Plan - Plan Referrals: Elsa Goddard, TYRONE [Primary Care Provider] - <Jonathan Davis - Last Filed: 09/19/16 18:44> Date of Encounter: 09/19/16 - Assessment and plan (1) Acute respiratory failure Current Visit: Yes Status: Acute Qualifiers: Respiratory failure complication: hypoxia and hypercapnia Qualified Code(s) : J96.01 - Acute respiratory failure with hypoxia; J96.02 - Acute respiratory failure with hypercapnia (2) Acute exacerbation of chronic obstructive airways disease Current Visit: Yes Status: Acute (3) Cancer of upper lobe of right lung Current Visit: No Status: Acute (4) Hypertension Current Visit: Yes Status: Chronic Qualifiers: Hypertension type: essential hypertension Qualified Code(s): I10 - Essential (primary) hypertension (5) Paroxysmal a-fib Current Visit: Yes Status: Chronic - Constitutional Vitals: Temp Pulse Resp BP Pulse Ox 97.5 F L 67 16 102/63 95 09/19/16 17:00 09/19/16 17:00 09/19/16 17:00 09/19/16 17:00 09/19/16 17:00 Internal Medicine: Result - Labs CBC & Chem 7: 09/17/16 02:23 09/19/16 03:55 Labs: Short CBC 09/17/16 Range/Units 02:23 WBC 3.2 L (4.3-11.1) K/mcL Hgb 10.0 L (12.9-16.9) g/dL Hct 29.4 L (37.5-50.1) % Plt Count 132 L (140-400) K/mcL Neutrophils # 3.1 (1.6-8.9) K/mcL BMP 09/19/16 03:55 Sodium 134 L Potassium 4.2 Chloride 101 Carbon Dioxide 26 BUN 15 Creatinine 0.60 L Glucose 118 H Calcium 8.4 L - ABG Interpretation ABG results: ABG ABG pH 7.42 pH Units (7.32-7.45) 09/18/16 04:21 ABG pCO2 43 mmHg (35-45) 09/18/16 04:21 ABG pO2 80 mmHg (85-104) L 09/18/16 04:21 ABG O2 Saturation 96 % (95-98) 09/18/16 04:21 - Attending Attestation I examined this patient and my medical decision-making was reviewed with the Resident Physician on 09/19/16. I agree with the documented findings, disposition and treatment plan as described except to the extent set forth below. Mr. Aragon is currently admitted due to acute hypoxic resp failure due to COPD exacerbation. He remains moderate to high risk due to potential of worsening respiratory status. Mr. Aragon is a little better today. Still having a lot of dyspnea. Coughing. No GI symptoms. No fever or chills. Exam Alert. Comfortable Heart reg Wheeze present I/P 1. Acute hypoxic resp failure 2. COPD exac 3. Lung cancer Further diagnoses and plan as above.
[2016-09-20] MEDS: Levofloxacin 500 MG/100 ML 500 MG/100 ML BAG IVPB SCH (01:45)
[2016-09-20] MEDS: methylPREDNISolone 125 MG/2 ML VIAL IVP SCH ×2 (01:45→05:54)
[2016-09-20] MEDS: GuaiFENesin/Codeine Oral Soln 5 ML UDC PO PRN ×2 (01:48→08:19)
[2016-09-20] MEDS: Ipratropium/Albuterol Neb 3 ML IH SCH ×6 (03:40→23:21)
[2016-09-20] MEDS: *HR* Enoxaparin 80 MG/0.8 ML SYRINGE SQ SCH ×2 (05:54→15:12)
[2016-09-20 06:20] LABS: Hematocrit 27.7 % (37.5-50.1); Hemoglobin 9.2 g/dL (12.9-16.9); Mean Corpuscular HGB Conc 33.2 g/dL (31.6-35.5); Mean Corpuscular Hemoglobin 33.5 pg (28.0-33.3); Mean Corpuscular Volume 100.7 fL (83.0-100.0); Mean Platelet Volume 10.5 fL (9.4-12.4); Monocytes # 0.4 K/mcL (0.0-1.3); Platelet Count 120 K/mcL (140-400); Red Blood Count 2.75 M/mcL (4.19-5.50)
[2016-09-20 06:31] LABS: BUN/Creatinine Ratio 27 (6-26); Blood Urea Nitrogen 15 mg/dL (8-26); Calcium 8.5 mg/dL (8.6-10.8); Carbon Dioxide 28 mEq/L (19-29); Chloride 100 mEq/L (98-109); Glucose 113 mg/dL (70-99); Magnesium 1.4 mg/dL (1.6-2.6); Osmolality,Calculated 280 (280-300); Phosphorous 3.6 mg/dL (2.3-4.7); Potassium 4.1 mEq/L (3.5-4.5); Sodium 134 mEq/L (136-145); eGFR For African Americans > 60 (> 60); eGFR For Non-African Americans > 60 (> 60)
[2016-09-20 06:44] LABS: Lymphocytes # 0.2 K/mcL (0.6-4.6); Neutrophils # 4.2 K/mcL (1.6-8.9); Platelet Estimate Slight Decrease (Normal)
[2016-09-20] MEDS: Albuterol 2.5 MG/3 ML NEBULIZER IH SCH ×6 (07:16→23:20)
[2016-09-20] MEDS: Budesonide/Formoterol 160/4.5 MDI IH SCH ×2 (07:24→20:41)
[2016-09-20] MEDS ORDERED: Magnesium Sulfate 1 GM in D5% in Water 100 ML IVPB ONE (08:40)
[2016-09-20] MEDS: Nystatin SUSP 5 ML UD.LIQ PO SCH ×4 (09:23→20:18)
[2016-09-20] MEDS: Magic Mouthwash 10 ML UD Cup PO SCH ×3 (09:23→15:13)
[2016-09-20] MEDS: *HR* OxyCODONE Immed Rel 5 MG TABLET PO PRN ×2 (12:47→18:39)
[2016-09-20] MEDS ORDERED: GI Cocktail 40 ML EACH PO ONE (13:29)
--- NOTE | 2016-09-20 13:33 | Internal Med Progress Note ---
<Pradeep Emery - Last Filed: 09/20/16 13:31> Date of Encounter: 09/20/16 Time of Encounter: 08:00 - Assessment and plan (1) Acute respiratory failure Current Visit: Yes Status: Acute Assessment and plan: Etiology likely multifactorial in setting of COPD, immunocompromised state, recent chemo/radiation. Continue Levaquin Day 4 scheduled DuoNebs Q4HR ABG reviewed: within normal limits. blood cultures showed no growth urine culture pending lactate normal. induced sputum culture pending. patient continues to clinically improve. IV steroids decreased to 40mg BID Patient still complains of chest tightness. EKG shows no acute changes. Given GI cocktail today to see if this relieves his discomfort. discontinued omprazole and added IV protonix. His chest discomfort is likely secondary to his radiation. Qualifiers: Respiratory failure complication: hypoxia and hypercapnia Qualified Code(s) : J96.01 - Acute respiratory failure with hypoxia; J96.02 - Acute respiratory failure with hypercapnia (2) Acute exacerbation of chronic obstructive airways disease Current Visit: Yes Status: Acute Assessment and plan: plan as above. (3) BC (bronchogenic carcinoma) Current Visit: Yes Status: Chronic Assessment and plan: Patient was recently diagnosed with bronchogenic carcinoma last month. Patient sees Dr. Singer outpatient. He is receiving chemo/radiation. Patient has a smoking history of 2 years, <1 PPD. CTA revealed right upper lobe lung mass near mediastinum, compatible with his known malignancy. There was a satellite nodule in the right upper lobe of the lung measuring 3mm. There were normal sized right hilar and mediastinal lymph nodes which demonstrated FDG uptake on previous study, compatible with metastatic disease. Management as per oncology outpatient. Qualifiers: Laterality: right Qualified Code(s): C34.31 - Malignant neoplasm of lower lobe, right bronchus or lung (4) Hypertension Current Visit: Yes Status: Chronic Assessment and plan: BP 90s/60s. holding home med norvasc for now. Qualifiers: Hypertension type: essential hypertension Qualified Code(s): I10 - Essential (primary) hypertension (5) Paroxysmal a-fib Current Visit: Yes Status: Chronic Assessment and plan: Patient not on any chronic anticoagulation. He has elected to not receive it outpatient. CHADS/VASC score is 2 CTA negative for PE. continue sotalol home med. Lovenox dose changed to 40mg once a day (6) DVT prophylaxis Current Visit: Yes Status: Acute Assessment and plan: lovenox. - Subjective Interval history: 71 year old male evaluated at bedside. He is on 2L humidified oxygen. He still complains of chest pressure, but his breathing is improved. He denies nausea, vomiting, chills. - Constitutional Vitals: Temp Pulse Resp BP Pulse Ox 98.3 F 63 22 96/56 94 L 09/20/16 11:16 09/20/16 11:16 09/20/16 11:16 09/20/16 11:16 09/20/16 11:16 General appearance: Present: cooperative, mild distress (from coughing. ), A&O X 3, pleasant, answers questions appropriately (but hard of hearing) - Head Head exam: Present: atraumatic, normocephalic - Neck Neck exam general surgery: Present: supple, trachea midline - Respiratory Respiratory exam: Present: rhonchi, wheezes Additional comments: rhonchi and wheezing improved from yesterday. - Cardiovascular Cardiovascular exam: Present: RRR, +S1, +S2 - GI/Abdominal GI/Abdominal exam: Present: normal bowel sounds, soft. Absent: distended, firm , tenderness - Extremities Exam Extremities exam: Absent: cyanotic, pedal edema - Neurological Exam Neurological exam: Present: alert, oriented X3, no focal deficits Internal Medicine: Result - Labs CBC & Chem 7: 09/20/16 06:05 09/20/16 06:05 Labs: Short CBC 09/17/16 09/20/16 Range/Units 02:23 06:05 WBC 3.2 L 4.8 (4.3-11.1) K/mcL Hgb 10.0 L 9.2 L (12.9-16.9) g/dL Hct 29.4 L 27.7 L (37.5-50.1) % Plt Count 132 L 120 L (140-400) K/mcL Neutrophils # 3.1 4.2 (1.6-8.9) K/mcL BMP 09/20/16 06:05 Sodium 134 L Potassium 4.1 Chloride 100 Carbon Dioxide 28 BUN 15 Creatinine 0.55 L Glucose 113 H Calcium 8.5 L - ABG Interpretation ABG results: ABG ABG pH 7.42 pH Units (7.32-7.45) 09/18/16 04:21 ABG pCO2 43 mmHg (35-45) 09/18/16 04:21 ABG pO2 80 mmHg (85-104) L 09/18/16 04:21 ABG O2 Saturation 96 % (95-98) 09/18/16 04:21 Consult Discharge Plan - Plan Referrals: Elsa Goddard, EXECUTIVE SERVICES ADMINISTRATOR [Primary Care Provider] - <Jonathan Davis A - Last Filed: 09/20/16 19:13> Date of Encounter: 09/20/16 - Assessment and plan (1) Acute respiratory failure Current Visit: Yes Status: Acute Qualifiers: Respiratory failure complication: hypoxia and hypercapnia Qualified Code(s) : J96.01 - Acute respiratory failure with hypoxia; J96.02 - Acute respiratory failure with hypercapnia (2) Acute exacerbation of chronic obstructive airways disease Current Visit: Yes Status: Acute (3) Cancer of upper lobe of right lung Current Visit: No Status: Acute (4) Hypertension Current Visit: Yes Status: Chronic Qualifiers: Hypertension type: essential hypertension Qualified Code(s): I10 - Essential (primary) hypertension (5) Paroxysmal a-fib Current Visit: Yes Status: Chronic - Constitutional Vitals: Temp Pulse Resp BP Pulse Ox 98.1 F 61 17 104/61 93 L 09/20/16 16:03 09/20/16 16:03 09/20/16 16:03 09/20/16 16:03 09/20/16 16:03 Internal Medicine: Result - Labs CBC & Chem 7: 09/20/16 06:05 09/20/16 06:05 Labs: Short CBC 09/20/16 Range/Units 06:05 WBC 4.8 (4.3-11.1) K/mcL Hgb 9.2 L (12.9-16.9) g/dL Hct 27.7 L (37.5-50.1) % Plt Count 120 L (140-400) K/mcL Neutrophils # 4.2 (1.6-8.9) K/mcL BMP 09/20/16 06:05 Sodium 134 L Potassium 4.1 Chloride 100 Carbon Dioxide 28 BUN 15 Creatinine 0.55 L Glucose 113 H Calcium 8.5 L - ABG Interpretation ABG results: ABG ABG pH 7.42 pH Units (7.32-7.45) 09/18/16 04:21 ABG pCO2 43 mmHg (35-45) 09/18/16 04:21 ABG pO2 80 mmHg (85-104) L 09/18/16 04:21 ABG O2 Saturation 96 % (95-98) 09/18/16 04:21 - Attending Attestation I examined this patient and my medical decision-making was reviewed with the Resident Physician on 09/20/16. I agree with the documented findings, disposition and treatment plan as described except to the extent set forth below. Mr. Aragon is currently admitted for acute exac COPD and hypoxia. He remains moderate to high risk due to potential for worsening respiratory status. Mr. Aragon is feeling OK but still having midsternal chest discomfort. Breathing seems OK. No fever or chills. No GI symptoms. Exam Alert. Comfortable Heart irreg Lungs clear at this time. I/P 1. Hypoxia 2. COPD 3. Chest pain - ? esophageal. GI cocktail trial. Further diagnoses and plan as above.
[2016-09-20] MEDS: MethylPREDNISolone 40 MG/ML VIAL IVP SCH (17:09)
--- NOTE | 2016-09-20 18:20 | Electrocardiograph Report ---
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
[2016-09-21] MEDS: GuaiFENesin/Codeine Oral Soln 5 ML UDC PO PRN ×2 (03:01→09:06)
[2016-09-21] MEDS: Ipratropium/Albuterol Neb 3 ML IH SCH ×6 (04:27→23:56)
[2016-09-21] MEDS: Albuterol 2.5 MG/3 ML NEBULIZER IH SCH ×6 (04:31→23:57)
[2016-09-21] MEDS: MethylPREDNISolone 40 MG/ML VIAL IVP SCH ×2 (06:01→17:45)
[2016-09-21 06:18] LABS: Hematocrit 28.8 % (37.5-50.1); Hemoglobin 9.7 g/dL (12.9-16.9); Mean Corpuscular HGB Conc 33.7 g/dL (31.6-35.5); Mean Corpuscular Hemoglobin 33.7 pg (28.0-33.3); Mean Platelet Volume 10.1 fL (9.4-12.4); Platelet Count 117 K/mcL (140-400); Red Blood Count 2.88 M/mcL (4.19-5.50); Red Cell Distribution Width 12.1 % (11.5-14.5)
[2016-09-21 06:29] LABS: BUN/Creatinine Ratio 32 (6-26); Blood Urea Nitrogen 18 mg/dL (8-26); Calcium 8.6 mg/dL (8.6-10.8); Carbon Dioxide 30 mEq/L (19-29); Chloride 100 mEq/L (98-109); Glucose 96 mg/dL (70-99); Magnesium 1.5 mg/dL (1.6-2.6); Osmolality,Calculated 286 (280-300); Potassium 4.2 mEq/L (3.5-4.5); Sodium 137 mEq/L (136-145); eGFR For African Americans > 60 (> 60); eGFR For Non-African Americans > 60 (> 60)
[2016-09-21 06:44] LABS: Monocytes # 0.3 K/mcL (0.0-1.3); Neutrophils # 4.4 K/mcL (1.6-8.9)
[2016-09-21 06:45] LABS: Anisocytosis 1+ (Not Present); Macrocytosis Present (Not Present); Platelet Estimate Decreased (Normal)
[2016-09-21] MEDS: Budesonide/Formoterol 160/4.5 MDI IH SCH ×2 (07:55→20:50)
[2016-09-21] MEDS ORDERED: Magnesium Sulfate 1 GM in D5% in Water 100 ML IVPB ONE (08:34)
[2016-09-21] MEDS: levoFLOXacin 500 MG TABLET PO SCH (09:06)
[2016-09-21] MEDS: Nystatin SUSP 5 ML UD.LIQ PO SCH ×4 (09:08→21:29)
[2016-09-21] MEDS: Magic Mouthwash 10 ML UD Cup PO SCH ×3 (09:08→16:11)
[2016-09-21] MEDS: Pantoprazole 40 MG VIAL IVP SCH (09:09)
[2016-09-21 09:52] LABS: Bilirubin,Urine Negative (Negative); Blood,Urine Negative (Negative); Clarity,Urine Clear (Clear); Color,Urine Yellow (Yellow); Glucose,Urine (UA) Normal (Normal); Ketones,Urine Negative (Negative); Leukocyte Esterase,Urine Negative (Negative); Nitrite,Urine Negative (Negative); PH,Urine 6.5 pH Units (5.0-8.0); Protein,Urine Negative (Neg-Trace); Specific Gravity,Urine 1.015 (1.010-1.025); Urobilinogen,Urine Normal (Normal)
--- NOTE | 2016-09-21 11:17 | Internal Med Progress Note ---
<Pradeep Emery - Last Filed: 09/21/16 11:15> Date of Encounter: 09/21/16 Time of Encounter: 09:00 - Assessment and plan (1) Acute respiratory failure Current Visit: Yes Status: Acute Assessment and plan: Etiology likely multifactorial in setting of COPD, immunocompromised state, recent chemo/radiation. Continue Levaquin Day 4 scheduled DuoNebs Q4HR ABG reviewed: within normal limits. blood cultures showed no growth urine culture pending lactate normal. induced sputum culture pending. patient continues to clinically improve. IV steroids 40mg BID Patient still complains of chest tightness. EKG shows no acute changes. Given GI cocktail today to see if this relieves his discomfort. discontinued omprazole and added IV protonix. His chest discomfort is likely secondary to his radiation. 09/21 patient complains of chest tightness. he received GI cocktail yesterday with no relief. His troponins were negative and EKG was normal. 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 consuulted oncology for evaluation. repeat CXR today showed left basilar atalectasis. Qualifiers: Respiratory failure complication: hypoxia and hypercapnia Qualified Code(s) : J96.01 - Acute respiratory failure with hypoxia; J96.02 - Acute respiratory failure with hypercapnia (2) Acute exacerbation of chronic obstructive airways disease Current Visit: Yes Status: Acute Assessment and plan: plan as above. (3) Non-small cell cancer of right lung Current Visit: Yes Status: Acute Assessment and plan: Patient was recently diagnosed with non small cell lung cancer of right lung. Patient sees Dr. Singer outpatient. He is receiving chemo/radiation. Patient has a smoking history of 2 years, <1 PPD. CTA revealed right upper lobe lung mass near mediastinum, compatible with his known malignancy. There was a satellite nodule in the right upper lobe of the lung measuring 3mm. There were normal sized right hilar and mediastinal lymph nodes which demonstrated FDG uptake on previous study, compatible with metastatic disease. Management as per oncology outpatient. 09/21 patient complains of chest tightness. he received GI cocktail yesterday with no relief. His troponins were negative and EKG was normal. 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 consuulted oncology for evaluation. (4) Hypertension Current Visit: Yes Status: Chronic Assessment and plan: BP normal. continue norvasc. Qualifiers: Hypertension type: essential hypertension Qualified Code(s): I10 - Essential (primary) hypertension (5) Paroxysmal a-fib Current Visit: Yes Status: Chronic Assessment and plan: Patient not on any chronic anticoagulation. He has elected to not receive it outpatient. CHADS/VASC score is 2 CTA negative for PE. continue sotalol home med. Lovenox 40mg once a day (6) DVT prophylaxis Current Visit: Yes Status: Acute Assessment and plan: lovenox. - Subjective Interval history: 71 year old male evaluated at bedside. He is on 2L humidified oxygen. He still complains of chest pressure, but his breathing is improved. He denies nausea, vomiting, chills. - Constitutional Vitals: Temp Pulse Resp BP Pulse Ox 97.5 F L 60 16 117/74 95 09/21/16 07:51 09/21/16 07:51 09/21/16 07:51 09/21/16 07:51 09/21/16 07:51 General appearance: Present: cooperative, mild distress (from coughing. ), A&O X 3, pleasant, answers questions appropriately (but hard of hearing) - Head Head exam: Present: atraumatic, normocephalic - Neck Neck exam general surgery: Present: supple, trachea midline - Respiratory Additional comments: mild wheezing present, significantly better compared to earlier. - Cardiovascular Cardiovascular exam: Present: RRR Additional comments: chemo port and pacemaker present on chest. - GI/Abdominal GI/Abdominal exam: Present: normal bowel sounds, tenderness. Absent: distended - Extremities Exam Extremities exam: Absent: cyanotic, pedal edema Additional comments: scar on left calf. - Neurological Exam Neurological exam: Present: alert, oriented X3, no focal deficits Internal Medicine: Result - Labs CBC & Chem 7: 09/21/16 06:07 09/21/16 06:07 Labs: Short CBC 09/21/16 Range/Units 06:07 WBC 4.7 (4.3-11.1) K/mcL Hgb 9.7 L (12.9-16.9) g/dL Hct 28.8 L (37.5-50.1) % Plt Count 117 L (140-400) K/mcL Neutrophils # 4.4 (1.6-8.9) K/mcL BMP 09/21/16 06:07 Sodium 137 Potassium 4.2 Chloride 100 Carbon Dioxide 30 H BUN 18 Creatinine 0.56 L Glucose 96 Calcium 8.6 Urine 09/21/16 Range/Units 09:40 Urine Color Yellow (Yellow) Urine Clarity Clear (Clear) Urine pH 6.5 (5.0-8.0) pH Units Ur Specific [place] 1.015 (1.010-1.025) Urine Protein Negative (Neg-Trace) mg/dL Urine Glucose (UA) Normal (Normal) mg/dL - ABG Interpretation ABG results: ABG ABG pH 7.42 pH Units (7.32-7.45) 09/18/16 04:21 ABG pCO2 43 mmHg (35-45) 09/18/16 04:21 ABG pO2 80 mmHg (85-104) L 09/18/16 04:21 ABG O2 Saturation 96 % (95-98) 09/18/16 04:21 - Impressions Impressions Chest X-Ray 09/21/16 09:35 IMPRESSION: 1. Left basilar atelectasis. 2. Right paratracheal mass. Please refer to the CT chest report dated 09/17/2016. D/ / Rolando Mcadams MD / Rolando Mcadams MD Interpreting Provider: Rolando Mcadams MD Consult Discharge Plan - Plan Referrals: Elsa Goddard, DATA OFFICER [Primary Care Provider] - <Jonathan Davis A - Last Filed: 09/21/16 15:01> Date of Encounter: 09/21/16 - Assessment and plan (1) Acute respiratory failure Current Visit: Yes Status: Acute Qualifiers: Respiratory failure complication: hypoxia and hypercapnia Qualified Code(s) : J96.01 - Acute respiratory failure with hypoxia; J96.02 - Acute respiratory failure with hypercapnia (2) Acute exacerbation of chronic obstructive airways disease Current Visit: Yes Status: Acute (3) Radiation esophagitis Current Visit: Yes Status: Acute Assessment and plan: Carafate added. (4) Cancer of upper lobe of right lung Current Visit: No Status: Acute (5) Hypertension Current Visit: Yes Status: Chronic Qualifiers: Hypertension type: essential hypertension Qualified Code(s): I10 - Essential (primary) hypertension (6) Paroxysmal a-fib Current Visit: Yes Status: Chronic - Constitutional Vitals: Temp Pulse Resp BP Pulse Ox 97.6 F 61 18 132/74 94 L 09/21/16 11:21 09/21/16 11:21 09/21/16 11:23 09/21/16 11:21 09/21/16 11:23 Internal Medicine: Result - Labs CBC & Chem 7: 09/21/16 06:07 09/21/16 06:07 Labs: Short CBC 09/21/16 Range/Units 06:07 WBC 4.7 (4.3-11.1) K/mcL Hgb 9.7 L (12.9-16.9) g/dL Hct 28.8 L (37.5-50.1) % Plt Count 117 L (140-400) K/mcL Neutrophils # 4.4 (1.6-8.9) K/mcL BMP 09/21/16 06:07 Sodium 137 Potassium 4.2 Chloride 100 Carbon Dioxide 30 H BUN 18 Creatinine 0.56 L Glucose 96 Calcium 8.6 Urine 09/21/16 Range/Units 09:40 Urine Color Yellow (Yellow) Urine Clarity Clear (Clear) Urine pH 6.5 (5.0-8.0) pH Units Ur Specific [place] 1.015 (1.010-1.025) Urine Protein Negative (Neg-Trace) mg/dL Urine Glucose (UA) Normal (Normal) mg/dL - ABG Interpretation ABG results: ABG ABG pH 7.42 pH Units (7.32-7.45) 09/18/16 04:21 ABG pCO2 43 mmHg (35-45) 09/18/16 04:21 ABG pO2 80 mmHg (85-104) L 09/18/16 04:21 ABG O2 Saturation 96 % (95-98) 09/18/16 04:21 - Impressions Impressions Chest X-Ray 09/21/16 09:35 IMPRESSION: 1. Left basilar atelectasis. 2. Right paratracheal mass. Please refer to the CT chest report dated 09/17/2016. D/ / Rolando Mcadams MD / Rolando Mcadams MD Interpreting Provider: Rolando Mcadams MD - Attending Attestation I examined this patient and my medical decision-making was reviewed with the Resident Physician on 09/21/16. I agree with the documented findings, disposition and treatment plan as described except to the extent set forth below. Mr Aragon is currently admitted for acute hypoxic resp failure and COPD exac. He remains moderate to high risk due to potential for worsening respiratory status. Mr. Aragon is still having substernal chest discomfort. He has had no fever or chills. No diarrhea. Breathing and coughing are beginning to improve. Exam Alert. Comfortable at this time Heart reg Less wheeze and rhonchi noted I/P 1. Chest pain - most likely radiation esophagitus 2. COPD exac Further diagnoses and plan as above.
--- NOTE | 2016-09-21 13:08 | Oncology Inp Consult Note ---
<Bethel Harrison Jr - Last Filed: 09/21/16 13:23> Date of Encounter: 09/21/16 Time of Encounter: 12:40 Assessment and Plan (1) Non-small cell cancer of right lung Status: Acute Assessment and plan: The patient has been receiving radiation treatments with Dr Zack Trejo at [facility]. The chest pain and tightness with cough is COPD superimposed with Radiation esophagitis. Oncology Recommendations: Keep patient overnight again today. He needs started on carafate 1,000mg PO 4 times daily, tablet dissolved in water. He needs physical therapy and into a bedside chair. He has been mostly bed bound for the last 5 days. Continue magic mouthwash 1 teaspoon every hours as needed with soft foods. Patient did eat lunch and he is feeling better. Follow up with Dr Singer on Monday09/23/16, then we will hold radiation and restart on 09/26/16. Send patient home with carafate 4 times daily for home use Dr Sinclair assessed patient with me and agrees with above plan. I spoke to Dr Trejo at [facility]. (2) Radiation esophagitis Status: Acute Assessment and plan: Start patient on carafate 1000mg 4 times daily today, dissolve tablet in water. This will need a written Rx for home as well. - Data of Consult Patient: known to practice within the last 3 years Consult date: 09/21/16 Requesting Physician: Jonathan Davis DO Primary Care Provider: Elsa Goddard CNP - Consult Narrative History of present illness: Mr. Aragon is a 71 year old male known to [facility]. He has a medical history significant for COPD, coronary artery disease, hypertension, hyperlipidemia, atrial fibrillation, status post pacemaker placement seen and evaluated for a lung mass. Patient had a chest x-ray due to cough shortness of breath and an decline in energy level which showed increased density in the right paratracheal region and he underwent a CT scan of the chest on 07/26/16 that showed a right apical lung mass with right hilar adenopathy and mediastinal invasion 2 cm low-density right adrenal mass. The mass itself measured 5.6 x 4.6 cm in the medial right apex, abutting the thoracic vertebral bodies T2 and T3 without bony destruction. Patient underwent bronch bx that was non diagnostic. He had Ct guided bx rt apical lung mass that showed poorly differentiated adenocarcinoma--08/16 PET scan showed 08/16--rt apical lung mass extending to mediastinum T4, rt paramediastinal and precarinal LN mildly PET positive N2M0 (no CT correlate of peritoneal thickening) CT head 08/16 was neg for mets as he could not take MRI Started radiation therapy with weekly carboplatin and taxol Patient admitted for COPD with continued chest tightness with negative cardiac work up. Oncology consulted for suspected radiation esophagitis Past Med Surg Social Fam HX - Past Medical History Medical history: arthritis, atrial fibrillation, cancer, COPD, coronary artery disease, GI bleed, hyperlipidemia, hypertension Psychiatric history: no psych history - Past Surgical History Surgical History: cholecystectomy, colectomy, orthopedic, other, pacemaker - Social History Smoking Status: Former smoker Smokeless Tobacco Status: No Alcohol use: occasionally Drug use: none Medications and Allergies Albuterol Sulfate [Albuterol Inhaler] 2 puff IH Q4HR PRN 08/10/16 [History] Amlodipine Besylate 2.5 mg PO DAILY 08/10/16 [History] Azelastine 0.1% Nasal [place] [Astelin] 1 spr NS BID PRN 08/10/16 [History] Fluticasone/Salmeterol [Advair Hfa 230-21 Mcg Inhaler] 2 puff IH BID 08/10/16 [ History] Ipratropium Neb [Atrovent Neb] 0.5 mg IH Q6HR PRN 08/10/16 [History] Lovastatin [Mevacor] 20 mg PO HS 08/10/16 [History] RisperiDONE [Risperidone] 0.5 mg PO TID 08/10/16 [History] Sotalol [Betapace] 80 mg PO Q12HR 08/10/16 [History] OxyCODONE Immed Rel [Roxicodone 5 MG] 5 mg PO BID PRN #60 tablet 08/12/16 [Rx] Guaifenesin/Codeine Phosphate [Guaifenesin-Codeine Syrup] 10 ml PO TID PRN #240 liquid 08/24/16 [Rx] Magic Mouthwash [Magic Mouthwash BLM] 10 ml PO QID PRN #240 ml 08/30/16 [Rx] Ondansetron ODT [Zofran ODT] 4 mg SL Q8HR PRN #30 tab.rapdis 08/30/16 [Rx] Prochlorperazine Maleate [Compazine] 10 mg PO Q8HR PRN #90 tablet 08/30/16 [Rx] Lidocaine/Prilocaine CREAM [Emla] 5 gm TP ONCE #1 tube 08/31/16 [Rx] Sennosides/Docusate Sodium [Senna-S Tablet] 1 each PO BID #60 tablet 09/14/16 [ Rx] Allergies No Known Allergies Allergy (Verified 08/10/16 08:12) All systems: reviewed and no additional remarkable complaints except as stated Constitutional: Present: weakness Cardiovascular: Present: dyspnea Respiratory: Present: cough, wheezing, pain with cough Oncology - Exam - Constitutional Vitals: Temp Pulse Resp BP Pulse Ox 97.6 F 61 18 132/74 94 L 09/21/16 11:21 09/21/16 11:21 09/21/16 11:23 09/21/16 11:21 09/21/16 11:23 General appearance: average body habitus, cooperative, no acute distress - Head Head exam: Present: atraumatic, normal inspection - Eye Eye exam: Present: conjuntiva pink Pupils: Present: PERRL - ENT ENT exam: Present: mucous membranes moist - Neck Neck exam: Present: full ROM, normal inspection - Respiratory Respiratory exam: Present: wheezes (scant expiratory) - Cardiovascular Cardiovascular exam: Present: RRR, +S1, +S2 - GI/Abdominal GI/Abdominal exam: Present: soft - Extremities Exam Extremities exam: Present: full ROM, normal inspection - Neurological Exam Neurological exam: Present: alert, CN II-XII intact, oriented X3, no focal deficits - Psychiatric Psychiatric exam: Present: normal affect, normal mood - Skin Skin exam: Present: dry, intact, warm Oncology - Results - Labs Labs: Short CBC 09/21/16 Range/Units 06:07 WBC 4.7 (4.3-11.1) K/mcL Hgb 9.7 L (12.9-16.9) g/dL Hct 28.8 L (37.5-50.1) % Plt Count 117 L (140-400) K/mcL Neutrophils # 4.4 (1.6-8.9) K/mcL BMP 09/21/16 06:07 Sodium 137 Potassium 4.2 Chloride 100 Carbon Dioxide 30 H BUN 18 Creatinine 0.56 L Glucose 96 Calcium 8.6 Urine 09/21/16 Range/Units 09:40 Urine Color Yellow (Yellow) Urine Clarity Clear (Clear) Urine pH 6.5 (5.0-8.0) pH Units Ur Specific [place] 1.015 (1.010-1.025) Urine Protein Negative (Neg-Trace) mg/dL Urine Glucose (UA) Normal (Normal) mg/dL Consult Discharge Plan - Plan Referrals: Elsa Goddard CNP [Primary Care Provider] - <Jenaro Sinclair - Last Filed: 09/21/16 17:06> Date of Encounter: 09/21/16 - Data of Consult Requesting Physician: Jonathan Davis DO Primary Care Provider: Elsa Goddard CNP - Consult Narrative History of present illness: Mr. 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 He is being diagnosed with mucositis, does not have thrush on exam. He has magic mouth wash to take as needed at home, PPI and prn pain medications. O/E Christopher ae ant, no rhonchi heard. Plan to d/c home if he is stable and able to ambulate without difficulty. Will resume RT possibly next wk, rather than tomorrow. For chemotherapy next wk , he will be seen in clinic early next wk. I have discussed above plan of care with Gary Harrison CNP. I have seen and examined patient myself and together with Errol Harrison CNP at rounds. Oncology - Exam - Constitutional Vitals: Temp Pulse Resp BP Pulse Ox 99.1 F 61 16 107/65 98 09/21/16 15:24 09/21/16 15:24 09/21/16 15:24 09/21/16 15:24 09/21/16 15:24 Oncology - Results - Labs Labs: Short CBC 09/21/16 Range/Units 06:07 WBC 4.7 (4.3-11.1) K/mcL Hgb 9.7 L (12.9-16.9) g/dL Hct 28.8 L (37.5-50.1) % Plt Count 117 L (140-400) K/mcL Neutrophils # 4.4 (1.6-8.9) K/mcL BMP 09/21/16 06:07 Sodium 137 Potassium 4.2 Chloride 100 Carbon Dioxide 30 H BUN 18 Creatinine 0.56 L Glucose 96 Calcium 8.6 Urine 09/21/16 Range/Units 09:40 Urine Color Yellow (Yellow) Urine Clarity Clear (Clear) Urine pH 6.5 (5.0-8.0) pH Units Ur Specific [place] 1.015 (1.010-1.025) Urine Protein Negative (Neg-Trace) mg/dL Urine Glucose (UA) Normal (Normal) mg/dL
[2016-09-21] MEDS: *HR* Enoxaparin 80 MG/0.8 ML SYRINGE SQ SCH (14:39)
[2016-09-21] MEDS: Sucralfate 1 GM TABLET PO SCH ×2 (16:10→21:29)
[2016-09-21] MEDS: *HR* OxyCODONE Immed Rel 5 MG TABLET PO PRN (17:44)
[2016-09-22] MEDS: GuaiFENesin/Codeine Oral Soln 5 ML UDC PO PRN (01:49)
[2016-09-22] MEDS: *HR* OxyCODONE Immed Rel 5 MG TABLET PO PRN ×2 (05:08→11:48)
[2016-09-22] MEDS: MethylPREDNISolone 40 MG/ML VIAL IVP SCH (05:11)
[2016-09-22] MEDS: Ipratropium/Albuterol Neb 3 ML IH SCH ×3 (05:21→11:10)
[2016-09-22] MEDS: Albuterol 2.5 MG/3 ML NEBULIZER IH SCH ×3 (05:22→11:10)
[2016-09-22 06:15] LABS: Hematocrit 28.2 % (37.5-50.1); Hemoglobin 9.2 g/dL (12.9-16.9); Immature Granulocytes % 1.9 % (0-4); Immature Platelets 6.4 % (1.1-6.1); Lymphocytes # 0.2 K/mcL (0.6-4.6); Lymphocytes % 4.7 %; Mean Corpuscular HGB Conc 32.6 g/dL (31.6-35.5); Mean Corpuscular Hemoglobin 32.9 pg (28.0-33.3); Mean Corpuscular Volume 100.7 fL (83.0-100.0); Mean Platelet Volume 10.4 fL (9.4-12.4); Monocytes # 0.5 K/mcL (0.0-1.3); Monocytes % 12.6 %; Neutrophils # 3.5 K/mcL (1.6-8.9); Platelet Count 117 K/mcL (140-400); Segmented Neutrophils % 80.8 %
[2016-09-22 07:11] LABS: BUN/Creatinine Ratio 32 (6-26); Blood Urea Nitrogen 19 mg/dL (8-26); Calcium 8.4 mg/dL (8.6-10.8); Carbon Dioxide 30 mEq/L (19-29); Chloride 99 mEq/L (98-109); Glucose 97 mg/dL (70-99); Magnesium 1.5 mg/dL (1.6-2.6); Osmolality,Calculated 284 (280-300); Potassium 4.5 mEq/L (3.5-4.5); Sodium 136 mEq/L (136-145); eGFR For African Americans > 60 (> 60); eGFR For Non-African Americans > 60 (> 60)
[2016-09-22 07:24] LABS: Platelet Estimate Slight Decrease (Normal)
[2016-09-22 07:42] VITALS: BP 133/78
[2016-09-22] MEDS: Budesonide/Formoterol 160/4.5 MDI IH SCH (08:15)
[2016-09-22] MEDS: levoFLOXacin 500 MG TABLET PO SCH (08:53)
[2016-09-22] MEDS: Pantoprazole 40 MG VIAL IVP SCH (08:53)
[2016-09-22] MEDS: amLODIPine 5 MG TABLET PO SCH (08:53)
[2016-09-22] MEDS: Magic Mouthwash 10 ML UD Cup PO SCH (08:54)
[2016-09-22] MEDS: Nystatin SUSP 5 ML UD.LIQ PO SCH (08:54)
[2016-09-22] MEDS: Sucralfate 1 GM TABLET PO SCH (08:57)
--- NOTE | 2016-09-22 09:59 | Discharge Summary ---
<Pradeep Emery - Last Filed: 09/22/16 17:09> Date of Encounter: 09/22/16 Time of Encounter: 10:00 - Discharge Diagnosis (1) Acute respiratory failure Priority: Secondary Status: Acute (2) Acute exacerbation of chronic obstructive airways disease Priority: Primary Status: Acute (3) Non-small cell cancer of right lung Priority: Secondary Status: Acute (4) Hypertension Priority: Secondary Status: Chronic (5) Paroxysmal a-fib Priority: Secondary Status: Chronic (6) DVT prophylaxis Priority: Secondary Status: Acute - Discharge Medications Prescriptions: Guaifenesin/Codeine Phosphate [Guaifenesin-Codeine Syrup] 10 ml PO TID PRN #240 liquid PRN Reason: Cough PredniSONE See Taper PO DAILY #36 tablet Sucralfate [Carafate] 1 gm PO QIDAC #120 tablet Home Medications: Albuterol Sulfate [Albuterol Inhaler] 2 puff IH Q4HR PRN 08/10/16 [History] Amlodipine Besylate 2.5 mg PO DAILY 08/10/16 [History] Azelastine 0.1% Nasal [place] [Astelin] 1 spr NS BID PRN 08/10/16 [History] Fluticasone/Salmeterol [Advair Hfa 230-21 Mcg Inhaler] 2 puff IH BID 08/10/16 [ History] Ipratropium Neb [Atrovent Neb] 0.5 mg IH Q6HR PRN 08/10/16 [History] Lovastatin [Mevacor] 20 mg PO HS 08/10/16 [History] RisperiDONE [Risperidone] 0.5 mg PO TID 08/10/16 [History] Sotalol [Betapace] 80 mg PO Q12HR 08/10/16 [History] OxyCODONE Immed Rel [Roxicodone 5 MG] 5 mg PO BID PRN #60 tablet 08/12/16 [Rx] Magic Mouthwash [Magic Mouthwash BLM] 10 ml PO QID PRN #240 ml 08/30/16 [Rx] Ondansetron ODT [Zofran ODT] 4 mg SL Q8HR PRN #30 tab.rapdis 08/30/16 [Rx] Prochlorperazine Maleate [Compazine] 10 mg PO Q8HR PRN #90 tablet 08/30/16 [Rx] Lidocaine/Prilocaine CREAM [Emla] 5 gm TP ONCE #1 tube 08/31/16 [Rx] Sennosides/Docusate Sodium [Senna-S Tablet] 1 each PO BID #60 tablet 09/14/16 [ Rx] Acetaminophen [Tylenol] 650 mg PO Q6HR PRN #0 tablet 09/22/16 [Rx] Guaifenesin/Codeine Phosphate [Guaifenesin-Codeine Syrup] 10 ml PO TID PRN #240 liquid 09/22/16 [Rx] PredniSONE See Taper PO DAILY #36 tablet 09/22/16 [Rx] Sucralfate [Carafate] 1 gm PO QIDAC #120 tablet 09/22/16 [Rx] Allergies/Adverse Reactions: Allergies No Known Allergies Allergy (Verified 08/10/16 08:12) Procedures/tests Complete & Pending: Procedures Performed prior 72 hours Category Date Time Status ECG 12 lead ECG [ECG] Routine Y 09/19/16 16:42 Completed Date of admission: 09/17/16 01:12 Primary care physician: Elsa Goddard CNP Consults: 09/17/16 17:15 Consult to Respiratory Therapy [CONS] Stat Reason for Consult: please do induced sputum culture Call Completed: No - Patient Status Disposition: Home, Self-Care Condition: Good Functional capacity at discharge: independent ambulation Overall status at discharge: patient is progressing back to baseline - Discharge Instructions Instructions: Sucralfate (By mouth), Prednisone (By mouth), Narcotic- Antitussive/Expectorant (By mouth), Atrial Fibrillation (DC), Lung Cancer (DC), Lung Cancer (GEN), Chronic Hypertension (DC), Lung Cancer, Provider Service Representative (GEN) Follow Up With: Elsa Goddard CNP [Primary Care Provider] - (Patient will call provider per patient request.) Cipriano Kye MD [Non-Partnered Physician] - Jenaro Sinclair MD [Partnered Physician] - 09/23/16 1:40 pm - Diet and Activity Activity: increase activity as tolerated Diet: low fat, low cholesterol Hospital course: Mr. Aragon is a 71 year old male with PMHx of arthritis, Afib, right non small cell lung caner, COPD (on home oxygen at night and as needed), CAD, GI bleed, HLD, HTN. Patient was admitted with acute respiratory failure, likely multifactorial in setting of COPD, immunocompromised state due to recent chemo/ radiation. He was placed on Levaquin, IV steroids, DuoNebs Q4HR. CTA was negative for PE, and showed right upper lobe lung mass near mediastinum, compatible with known malignancy. patient was placed on therapeutic lovenox while in the hospital setting and his CHADS/VASC score was 2. Should be evaluated outpatient for anticoagulation. Throughout his hospital course, patient continued to clinically improve. He did complain of some chest tightness , EKG was normal. It was later determined that this was likely due to radiation esophagitis, so he was placed on carafate. After patient completed his course of Levaquin, his breathing improved drastically. patient remained stable throughout his entire hospital stay and until discharge. Plan: take prednisone taper, guanfenacin, and carafate as directed follow up with PCP within one week (should be evaluated if he needs to be anticoagulated for Afib) Follow up with oncologist - Time Spent with Patient Total time spent providing and/or coordinating discharge services: - Constitutional Vitals: Temp Pulse Resp BP Pulse Ox 97.3 F L 62 18 133/78 95 09/22/16 00:28 09/22/16 07:00 09/22/16 08:17 09/22/16 07:00 09/22/16 08:17 General appearance: Present: cooperative, mild distress (from coughing. ), A&O X 3, pleasant, answers questions appropriately (but hard of hearing) - Head Head exam: Present: atraumatic, normocephalic - Neck Neck exam general surgery: Present: supple, trachea midline - Respiratory Respiratory exam: Present: rhonchi - Cardiovascular Cardiovascular exam: Present: RRR - GI/Abdominal GI/Abdominal exam: Present: normal bowel sounds, soft - Extremities Exam Extremities exam: Absent: cyanotic, pedal edema - Neurological Exam Neurological exam: Present: alert, oriented X3, no focal deficits <Jonathan Davis - Last Filed: 09/22/16 17:43> Date of Encounter: 09/22/16 - Discharge Diagnosis (1) Acute respiratory failure Priority: Primary Status: Acute Qualifiers: Qualified Code(s): J96.01 - Acute respiratory failure with hypoxia; J96.02 - Acute respiratory failure with hypercapnia (2) Acute exacerbation of chronic obstructive airways disease Status: Acute (3) Radiation esophagitis Priority: Secondary Status: Acute (4) Cancer of upper lobe of right lung Priority: Secondary Status: Acute (5) Hypertension Status: Chronic Qualifiers: Qualified Code(s): I10 - Essential (primary) hypertension (6) Paroxysmal a-fib Status: Chronic Procedures/tests Complete & Pending: Procedures Performed prior 72 hours Category Date Time Status ECG 12 lead ECG [ECG] Routine Y 09/19/16 16:42 Completed Date of admission: 09/17/16 01:12 Primary care physician: Elsa Goddard CNP Consults: 09/17/16 17:15 Consult to Respiratory Therapy [CONS] Stat Reason for Consult: please do induced sputum culture Call Completed: No Hospital course: Mr. Aragon is a 71 year old male - Time Spent with Patient Total time spent providing and/or coordinating discharge services: 41min - Constitutional Vitals: Temp Pulse Resp BP Pulse Ox 97.3 F L 62 16 133/78 95 09/22/16 00:28 09/22/16 07:00 09/22/16 11:10 09/22/16 07:00 09/22/16 11:10 - Attending Attestation I examined this patient and my medical decision-making was reviewed with the Resident Physician on 09/22/16. I agree with the documented findings, disposition and treatment plan as described except to the extent set forth below. Mr. Aragon seems to be doing better today. He was able to eat breakfast. He is afebrile and BP is good. He is ready to go home today. Exam Alert. Comfortable Heart irreg Lungs no wheeze Plan D/C home today Follow up tomorrow with oncology.
== END 2016-09-22 12:48 | disposition home or self-care (01) | DRG 190 ==
LOC: 2NENU 19:25 → EMEROO 19:25 → 2NENU 23:35
PROVIDERS: ADMIT Internal Medicine; ATTEND Internal Medicine